=== PATIENT | female | born 2000 | race Two or more races ===

== ENCOUNTER 2024-11-12 13:15 | Emergency (ER) | payer MEDICAID ==
[~2024-11-12] VITALS: Ht 182.9 cm; Wt 81.0 kg
[2024-11-12 13:24] VITALS: O2SAT 98
[2024-11-12 14:01] LABS: BASOPHILS % 0.5 % (0.0-2.0); EOSINOPHILS % 0.9 % (0.0-5.0); HEMATOCRIT. 36.4 % (36.0-48.0); LYMPHOCYTES % 10.6 % (20.0-50.0); MEAN CORPUSCULAR HEMOGLOBIN 26.3 pg (28.0-32.0); MEAN CORPUSCULAR HGB CONC 32.8 g/dL (31.0-37.0); MEAN CORPUSCULAR VOLUME 80.1 fL (81.0-99.0); MEAN PLATELET VOLUME 8.9 fl (7.4-10.4); MONOCYTES % 7.6 % (2.0-8.0); NEUTROPHILS % 80.4 % (40.0-76.0); PLATELET 307 x1000/uL (130-400); RED BLOOD CELL COUNT 4.55 mill/uL (4.2-5.4); RED CELL DISTRIBUTION WIDTH 16.9 % (11.6-14.6); WHITE BLOOD COUNT 18.3 x1000/uL (4.5-11.0)
[2024-11-12] MEDS: HALOPERIDOL LACTATE 5MG/ML VIAL IM STA (14:09)
[2024-11-12 14:10] LABS: CHLORIDE 105 mEq/L (98-107); POTASSIUM 3.6 mEq/L (3.5-5.1); SODIUM 138 mEq/L (136-145)
[2024-11-12 14:11] LABS: CALCIUM 9.8 mg/dL (8.7-10.4); CARBON DIOXIDE 23 mEq/L (21-32)
[2024-11-12 14:16] LABS: CREATININE 1.2 mg/dL (0.6-1.0); GLUCOSE 130 mg/dL (70-105); UREA NITROGEN BLOOD 11 mg/dL (9-23)
[2024-11-12 14:17] LABS: ETHANOL BLOOD < 10 mg/dL (<10)
[2024-11-12 14:37] LABS: CLARITY URINE CLEAR (CLEAR); COLOR URINE YELLOW (YELLOW); GLUCOSE URINE NEGATIVE (NEGATIVE); KETONES URINE TRACE (NEGATIVE); LEUKOCYTE ESTERASE URINE TRACE (NEGATIVE); NITRITE URINE NEGATIVE (NEGATIVE); OCCULT BLOOD URINE NEGATIVE (NEGATIVE); PH URINE 6.5 (4.5-8.0); PROTEIN URINE NEGATIVE (NEGATIVE)
[2024-11-12 14:53] LABS: *AMPHETAMINES SCREEN URINE NEGATIVE (NEGATIVE); *BARBITURATES SCREEN URINE NEGATIVE (NEGATIVE); *BENZODIAZEPINES SCREEN URINE PRESUMPTIVE POSITIVE (NEGATIVE); *COCAINE SCREEN URINE PRESUMPTIVE POSITIVE (NEGATIVE); BACTERIA URINE TRACE; METHADONE URINE SCREEN NEGATIVE (NEGATIVE); SQUAMOUS EPITHELIAL CELL URINE FEW /lpf (RARE/1+); WBC URINE 0-2 /hpf (0-2)
[2024-11-12 14:54] LABS: CANNABINOID URINE SCREEN NEGATIVE (NEGATIVE); ECSTASY MDMA SCREEN URINE NEGATIVE (NEGATIVE); MUCUS URINE TRACE /lpf (< = 2+); OPIATES URINE SCREEN NEGATIVE (NEGATIVE); PHENCYCLIDINE URINE SCREEN NEGATIVE (NEGATIVE); RBC URINE 0-2 /hpf (0-2)
[2024-11-12] MEDS: CEFTRIAXONE SODIUM 500MG VIAL IM ONE (15:00)
[2024-11-12] MEDS: DOXYCYCLINE HYCLATE 100MG CAPSULE PO ONE (15:01)
[2024-11-12] MEDS: SODIUM CHLORIDE 0.9% 1,000 ML IV ONE (15:49)
[2024-11-12 16:24] LABS: HCG SCREEN NEGATIVE
[2024-11-12 17:37] LABS: BASOPHILS % 0.4 % (0.0-2.0); HEMATOCRIT. 32.6 % (36.0-48.0); HEMOGLOBIN. 10.7 g/dL (12.0-16.0); LYMPHOCYTES % 12.8 % (20.0-50.0); MEAN CORPUSCULAR HEMOGLOBIN 26.8 pg (28.0-32.0); MEAN CORPUSCULAR HGB CONC 32.9 g/dL (31.0-37.0); MEAN CORPUSCULAR VOLUME 81.4 fL (81.0-99.0); MEAN PLATELET VOLUME 8.9 fl (7.4-10.4); MONOCYTES % 7.6 % (2.0-8.0); NEUTROPHILS % 77.2 % (40.0-76.0); PLATELET 246 x1000/uL (130-400); WHITE BLOOD COUNT 12.7 x1000/uL (4.5-11.0)
[2024-11-13] MEDS: LORAZEPAM 1MG TABLET PO NR (17:54)
[2024-11-13] MEDS: QUETIAPINE FUMARATE 50MG TABLET PO STA (21:50)
[2024-11-14 18:00] VITALS: BP 118/86; PULSE 92; RESP 18; TEMP 36.8; O2SAT 98
== END 2024-11-14 18:13 ==
LOC: ER 13:15
DX: R45.851 Suicidal ideations (principal); F31.9 Bipolar disorder, unspecified; F25.9 Schizoaffective disorder, unspecified; Z79.899 Other long term (current) drug therapy; Z20.822 Contact with and (suspected) exposure to COVID-19
CPT/HCPCS: 80305; 80048; 81003; 80307; 80329; 80320; 84703; 85025; 86592; 36415; 71045; 96360; 96361; 96372; 99285; 87426; J0696; J1630; J7030; Z7610 ×5; G0480